=== PATIENT | male | born 2000 | race Caucasian/White ===

== ENCOUNTER 2022-11-29 08:38 | Emergency (ER) | payer OTHER ==
[2022-11-29 08:42] VITALS: RESP 18; BMI 28.8
[2022-11-29] MEDS ORDERED: SODIUM CHLORIDE 0.9% 1000 ML INFUS.BAG IV ONE (10:51)
[2022-11-29 11:38] LABS: BASO % 1.1 % (0-2.0); EOS % 0.9 % (0-4.5); HEMOGLOBIN 15.2 GM/dL (11.7-16.9); LYMPH % 24.9 % (8-40); MCH 27.2 pg (25.7-33.7); MEAN CELL VOLUME 82.4 fl (80-96); MEAN PLT VOLUME 8.7 fl (7.5-11.1); MONO % 6.8 % (3.8-10.2); NEUT % 66.3 % (42.8-82.8); PLATELET COUNT 288 10^3/uL (134-434); RBC 5.58 M/mm3 (4.00-5.60); WHITE BLOOD COUNT 9.3 K/mm3 (4.0-10.0)
[2022-11-29 11:45] LABS: INR 1.08 (0.83-1.09); PROTHROMBIN TIME (PATIENT) 12.4 SEC (9.7-13.0)
[2022-11-29 11:48] LABS: ACTIVATED PTT 20.3 SECONDS (25.2-36.5)
[2022-11-29 12:02] LABS: ALBUMIN 4.3 g/dl (3.4-5.0); BLOOD UREA NITROGEN 11.1 mg/dL (7-18); CALCIUM 9.8 mg/dL (8.5-10.1)
[2022-11-29 12:05] LABS: CREATININE 0.7 mg/dL (0.55-1.3)
[2022-11-29 12:07] LABS: BILIRUBIN,TOTAL 1.5 mg/dL (0.2-1); TOT PROT 7.4 g/dl (6.4-8.2)
[2022-11-29 12:38] VITALS: BP 126/76; PULSE 83; TEMP 98.4
== END 2022-11-29 15:03 | disposition home or self-care (01) ==
LOC: JER 08:38
DX: R55 Syncope and collapse (principal); R07.9 Chest pain, unspecified
CPT/HCPCS: 0241U-QW; 36415; 71046-TC-FY; 80053; 82962; 84443; 84484; 85025; 85379; 85610; 85730; 93005; 93010; 93308; 99285-25